=== PATIENT | male | born 1970 | race Caucasian/White ===

== ENCOUNTER 2018-01-14 12:54 | Observation (INO) | payer OTHER ==
[~2018-01-14] VITALS: Ht 185.4 cm; Wt 116.1 kg
[2018-01-14] MEDS ORDERED: DIATRIZOATE MEGL/DIATRIZOA SOD 30 ML BTL PO ONE (15:03)
[2018-01-14] MEDS ORDERED: CIPRO500 MG PO (15:25)
[2018-01-14] MEDS ORDERED: COLESTIPOL HCL1 GM PO (15:25)
[2018-01-14] MEDS ORDERED: DICYCLOMINE HCL20 MG PO (15:25)
[2018-01-14] MEDS ORDERED: ATORVASTATIN CA20 MG PO (15:25)
[2018-01-14] MEDS ORDERED: LOMOTIL TABLET1 EACH PO (15:25)
[2018-01-14 15:30] VITALS: BP 142/91
[2018-01-14 15:39] VITALS: BP 142/91
[2018-01-14 15:42] LABS: BASOPHILS # (AUTO) 0.1 (0.0-0.1); BASOPHILS % 0.7 % (0.0-1.0); EOSINOPHILS # (AUTO) 0.4 (0.0-0.4); EOSINOPHILS % 5.3 % (0.0-6.0); HEMATOCRIT 39.1 % (38.2-49.6); HEMOGLOBIN 13.4 g/dL (14.0-18.0); LYMPHOCYTES # (AUTO) 1.8 (1.0-3.2); LYMPHOCYTES % 25.1 % (18.0-39.1); MEAN CORPUSCULAR HEMOGLOBIN 28.9 pg (28-32); MEAN CORPUSCULAR HGB CONC 34.3 g/dL (31-35); MEAN CORPUSCULAR VOLUME 84.4 fL (81-99); MONOCYTES # (AUTO) 0.9 (0.2-0.8); MONOCYTES % 12.5 % (4.4-11.3); NEUTROPHILS # (AUTO) 3.9 (2.1-6.9); NEUTROPHILS % 56.3 % (38.7-80.0); PLATELET COUNT 266 x10e3/uL (140-360); RED BLOOD COUNT 4.63 x10e6/uL (4.3-5.7); RED CELL DISTRIBUTION WIDTH 12.6 % (11.7-14.4)
[2018-01-14] MEDS ORDERED: RITUXAN10 MG/1 ML IV (15:50)
[2018-01-14 15:54] LABS: ALANINE AMINOTRANSFERASE 137 IU/L (0-55); ALBUMIN 3.9 g/dL (3.5-5.0); ALBUMIN/GLOBULIN RATIO 1.3 (0.8-2.0); ALKALINE PHOSPHATASE 89 IU/L (40-150); ANION GAP 14.4 mmol/L (8-16); BLOOD UREA NITROGEN 7 mg/dL (7-26); BUN/CREATININE RATIO 7 (6-25); CALCIUM 9.3 mg/dL (8.4-10.2); CARBON DIOXIDE 22 mmol/L (22-29); CHLORIDE 107 mmol/L (98-107); CREATININE, SERUM 0.96 mg/dL (0.72-1.25); EST GLOMERULAR FILTRATION RATE > 60 ML/MIN (60-); GLUCOSE 92 mg/dL (74-118); POTASSIUM 3.4 mmol/L (3.5-5.1); SODIUM 140 mmol/L (136-145)
[2018-01-14 16:16] LABS: WBC,FECAL (FECAL LACTOFERRIN) POSITIVE (NEGATIVE)
[2018-01-14 16:30] VITALS: BP 142/91
[2018-01-14] MEDS: POTASSIUM CHLORIDE 10 MEQ in SODIUM CHLORIDE 0.9% 1000ML 1,000 ML IV SCH (16:37)
[2018-01-14] MEDS: DIPHENOXYLATE/ATROPINE TAB PO PRN ×2 (17:03→20:30)
--- NOTE | 2018-01-14 17:55 | Diagnostic Imaging Report ---
EXAM: CT Abdomen and Pelvis WITH contrast INDICATION: \S\diverticulitis, dehydration \[id number] \S\1721 \S\Y COMPARISON: None. TECHNIQUE: Abdomen and pelvis were scanned utilizing a multidetector helical scanner from the lung base to the pubic symphysis after administration of IV contrast. Coronal and sagittal reformations were obtained. Dose modulation, iterative reconstruction, and/or weight based adjustment of the mA/kV was utilized to reduce the radiation dose to as low as reasonably achievable. Routine protocol was performed. Scan was performed when during portal venous phase. IV CONTRAST: 100 mL of Isovue-370 ORAL CONTRAST: Gastroview COMPLICATIONS: None RADIATION DOSE: Total DLP: 859.35 mGy*cm Estimated effective dose: (DLP x 0.015 x size factor) mSv CTDIvol has been reviewed. It is below the limits set by the Radiation Protocol Committee (RPC). FINDINGS: LINES and TUBES: None. LOWER THORAX: Partially imaged right middle lobe and 5 mm groundglass right lower lobe nodules. HEPATOBILIARY: No focal hepatic lesions. No biliary ductal dilation. GALLBLADDER: No radio-opaque stones or sludge. No wall thickening. SPLEEN: No splenomegaly. PANCREAS: No focal masses or ductal dilatation. ADRENALS: No adrenal nodules KIDNEYS/URETERS: Kidneys enhance symmetrically. No hydronephrosis. No cystic or solid mass lesions. No stones. GI TRACT: No abnormal distention, wall thickening, or evidence of bowel obstruction. Appendix is normal. PELVIC ORGANS/BLADDER: Unremarkable. LYMPH NODES: No lymphadenopathy. VESSELS: Unremarkable. PERITONEUM / RETROPERITONEUM: No free air or fluid. BONES: Bilateral L5 pars defects without evidence of L5-S1 spondylolisthesis. SOFT TISSUES: Unremarkable. Vasectomy clips. IMPRESSION: 1. No acute infiltrate process in the abdomen/pelvis. 2. No signs of diverticulitis. 3. Nonspecific tiny lung nodules. Without risk factors, no follow-up is necessary. With risk factors, follow-up with low-dose chest CT in one year is optional. Signed by: Dr. Kenneth Aden MD on 01/14/2018 5:51 PM
[2018-01-14] MEDS ORDERED: SODIUM CHLORIDE 0.9% 50ML 50 ML ONE (18:30)
[2018-01-14] MEDS ORDERED: IOPAMIDOL 370 MG/ML 200 ML INFUS..BTL INJ ONE (18:30)
[2018-01-14 20:00] VITALS: BP 141/86
[2018-01-14] MEDS: ATORVASTATIN 20 MG TAB PO SCH (20:10)
[2018-01-15] VITALS (8 sets, daily range): BP systolic 118–140; BP diastolic 63–81
[2018-01-15] MEDS: POTASSIUM CHLORIDE 10 MEQ in SODIUM CHLORIDE 0.9% 1000ML 1,000 ML IV SCH ×3 (01:47→17:09)
[2018-01-15] MEDS ORDERED: PEG (High)/E-LYTE SOLN 4,000 ML BTL PO ONE (03:30)
[2018-01-15] MEDS ORDERED: PETROLATUM 30 GM TUBE TP PRN (06:30)
[2018-01-15 09:54] LABS: C DIFFICILE TOXIN A&B AMP PROB NEGATIVE (NEGATIVE)
[2018-01-15] MEDS ORDERED: FENTANYL CITRATE/PF 100MCG/2 ML INJ ONE (18:27)
[2018-01-15] MEDS ORDERED: MIDAZOLAM HCL 2 MG/2 ML VIAL ONE (18:27)
--- NOTE | 2018-01-15 19:54 | Operative Report ---
DATE OF PROCEDURE: January 15, 2018 REFERRING PHYSICIAN: Dr Austin Clarke. PROCEDURE PERFORMED: Colonoscopy and polypectomy with biopsies. INDICATIONS FOR COLONOSCOPY: Diarrhea, lower abdominal pain. MEDICATION: Patient was done under MAC, please see anesthesiologist's note. PROCEDURE: With the patient in left lateral decubitus position, a flexible fiberoptic Olympus colonoscope was inserted into the rectum with ease and advanced all the way to the cecum. An approximately 8-mm sessile polyp was snared from the cecum. Ileocecal valve was intubated and the scope was advanced into the terminal ileum. Biopsies were obtained. The scope was then withdrawn back into the colon. It was then withdrawn slowly and the mucosa overlying the ascending, transverse, descending, and sigmoid revealed some patchy mild inflammatory changes. Multiple random biopsies were obtained. Some diverticular disease was noted in the distal descending and sigmoid colon. One polyp was hot biopsied from the sigmoid colon. The scope was then retroflexed into the distal rectum and small internal hemorrhoids were noted, none of which was actively bleeding. The scope was then straightened out and was subsequently withdrawn after securing an adequate stool specimen that was sent for the appropriate stool studies. Patient tolerated the procedure well. IMPRESSION 1. Cecal polyp, snared. 2. Mild patchy colitis, random biopsies obtained. 3. Diverticulosis. 4. Sigmoid colon polyp, hot biopsied. 5. Internal hemorrhoids, none actively bleeding. PLAN: Follow up histology. Follow up stool studies. Initiate Bentyl 10 mg 1 p.o. t.i.d. VSL#3 one p.o. daily. Patient might benefit from a followup colonoscopy in 3 years. Job#: [id number] LPA cc:AUSTIN CLARKE MD
[2018-01-15] MEDS: ATORVASTATIN 20 MG TAB PO SCH (21:08)
[2018-01-15] MEDS: DICYCLOMINE HCL 10 MG CAP PO SCH (21:08)
[2018-01-16 00:51] VITALS: BP 125/85
[2018-01-16] MEDS: POTASSIUM CHLORIDE 10 MEQ in SODIUM CHLORIDE 0.9% 1000ML 1,000 ML IV SCH ×2 (04:00→08:44)
[2018-01-16 07:23] VITALS: BP 139/85
[2018-01-16 07:56] VITALS: BP 139/85
[2018-01-16] MEDS: DICYCLOMINE HCL 10 MG CAP PO SCH (08:29)
[2018-01-16] MEDS ORDERED: DICYCLOMINE HCL10 MG PO (11:14)
[2018-01-16] MEDS ORDERED: VSL#3 CAPSULE1 EACH PO (11:16)
[2018-01-16 12:02] VITALS: BP 131/77
[2018-01-16] MEDS ORDERED: PROPOFOL IV EMULSION 10 MG/ML 20 ML VIAL ONE (12:45)
[2018-01-16 14:17] LABS: C DIFFICILE TOXIN A&B AMP PROB NEGATIVE (NEGATIVE)
[2018-01-16 14:26] LABS: WBC,FECAL (FECAL LACTOFERRIN) POSITIVE (NEGATIVE)
== END 2018-01-16 12:31 | disposition home or self-care (01) ==
LOC: MED/SURG3 14:34
PROVIDERS: ADMIT Family Medicine; ATTEND Family Medicine
DX: K57.30 Diverticulosis of large intestine without perforation or abscess without bleeding (principal); D12.0 Benign neoplasm of cecum; E86.0 Dehydration; E78.5 Hyperlipidemia, unspecified; M06.9 Rheumatoid arthritis, unspecified; I10 Essential (primary) hypertension; Z82.49 Family history of ischemic heart disease and other diseases of the circulatory system; Z83.3 Family history of diabetes mellitus; Z80.8 Family history of malignant neoplasm of other organs or systems; I25.10 Atherosclerotic heart disease of native coronary artery without angina pectoris; G47.33 Obstructive sleep apnea (adult) (pediatric); K63.5 Polyp of colon; K52.9 Noninfective gastroenteritis and colitis, unspecified; K64.8 Other hemorrhoids; R15.2 Fecal urgency; R79.89 Other specified abnormal findings of blood chemistry
CPT/HCPCS: 36415; 45384; 45385; 74177; 80053; 83630 ×2; 83993; 85025; 87045; 87177 ×2; 87328 ×2; 87493 ×2; 88305; G0378 ×3; J2250; J3480 ×2; J7030 ×2; Q9967; 45378; 45380

== ENCOUNTER 2022-03-02 02:08 | Emergency (ER) | payer BC, OTHER ==
[~2022-03-02] VITALS: Ht 185.4 cm; Wt 116.1 kg
[~2022-03-02 02:08] MED LIST: ATORVASTATIN CA20 MG PO; CIPRO500 MG PO; COLESTIPOL HCL1 GM PO; DICYCLOMINE HCL10 MG PO; DICYCLOMINE HCL20 MG PO; LOMOTIL TABLET1 EACH PO; RITUXAN10 MG/1 ML IV; VSL#3 CAPSULE1 EACH PO
[2022-03-02] MEDS ORDERED: ONDANSETRON HCL INJ 2MG/ML 2ML 2 MG/ML VIAL IV STA ×2 (02:09→03:37)
[2022-03-02] MEDS ORDERED: KETOROLAC TROMETHAMINE 30 MG/ML VIAL IV STA (02:09)
[2022-03-02 03:05] LABS: BASOPHILS # (AUTO) 0.1 (0.0-0.1); BASOPHILS % 0.7 % (0.0-1.0); EOSINOPHILS # (AUTO) 0.4 (0.0-0.4); HEMATOCRIT 44.1 % (38.2-49.6); HEMOGLOBIN 14.2 g/dL (14.0-18.0); LYMPHOCYTES # (AUTO) 5.5 (1.0-3.2); LYMPHOCYTES % 52.3 % (18.0-39.1); MEAN CORPUSCULAR HEMOGLOBIN 29.5 pg (28-32); MEAN CORPUSCULAR HGB CONC 32.2 g/dL (31-35); MEAN CORPUSCULAR VOLUME 91.5 fL (81-99); MONOCYTES # (AUTO) 0.8 (0.2-0.8); MONOCYTES % 7.5 % (4.4-11.3); NEUTROPHILS # (AUTO) 3.7 (2.1-6.9); NEUTROPHILS % 35.4 % (38.7-80.0); PLATELET COUNT 224 x10e3/uL (140-360); RED BLOOD COUNT 4.82 x10e6/uL (4.3-5.7); RED CELL DISTRIBUTION WIDTH 12.8 % (11.7-14.4)
[2022-03-02] MEDS ORDERED: HYDROMORPHONE 1MG/1ML INJ IV STA (03:13)
[2022-03-02 03:15] LABS: ANION GAP 16.7 mmol/L (8-16); CALCIUM 9.3 mg/dL (8.4-10.2); CREATININE, SERUM 1.27 mg/dL (0.72-1.25); POTASSIUM 3.7 mmol/L (3.5-5.1)
[2022-03-02 03:33] LABS: CLARITY,URINE CLOUDY (CLEAR); COLOR,URINE YELLOW (YELLOW); KETONES,URINE NEGATIVE (NEGATIVE); LEUKOCYTE ESTERASE ,URINE NEGATIVE (NEGATIVE); NITRITE,URINE NEGATIVE (NEGATIVE); PROTEIN,URINE DIPSTICK 2+ (NEGATIVE); URINE UROBILINOGEN 1 mg/dL (0.2 - 1)
[2022-03-02] MEDS ORDERED: HYDROCODON-ACE1 EAC9 PO (03:33)
[2022-03-02] MEDS ORDERED: ONDANSETRON ODT4 MG PO (03:33)
[2022-03-02] MEDS ORDERED: FLOMAX0.4 MG PO (03:33)
[2022-03-02] MEDS ORDERED: CEFDINIR300 MG PO (03:33)
[2022-03-02] MEDS ORDERED: KETOROLAC TROME10 MG PO (03:33)
[2022-03-02] MEDS ORDERED: ONDANSETRON HCL INJ 2MG/ML 2ML 2 MG/ML VIAL ONE (03:51)
[2022-03-02 03:52] VITALS: BP 148/79
[2022-03-02 03:52] LABS: BACTERIA,URINE MODERATE /HPF; RBC,URINE >50 /HPF (0-5)
[2022-03-02 03:53] LABS: EPITHELIAL CELLS,URINE FEW /LPF; MUCUS,URINE MANY (RARE); TRANSITIONAL EPI CELLS,URINE FEW
== END 2022-03-02 03:53 | disposition home or self-care (01) ==
LOC: ER 02:10
DX: R30.0 Dysuria (principal); N13.2 Hydronephrosis with renal and ureteral calculous obstruction; R10.30 Lower abdominal pain, unspecified; I10 Essential (primary) hypertension; H81.09 Meniere's disease, unspecified ear; M06.9 Rheumatoid arthritis, unspecified; G47.30 Sleep apnea, unspecified
CPT/HCPCS: 36415; 74176; 80048; 81001; 85025; 99284; J1170; J1885; J2405